=== PATIENT | male | born 1990 | race Caucasian/White ===

== ENCOUNTER 2017-09-23 12:04 | Emergency (ER) | payer SELFPAY ==
[2017-09-23] MEDS ORDERED: Lidocaine 1% (PF) 30 ML VIAL ONE (12:30)
[2017-09-23] MEDS ORDERED: Adacel (T-DAP) 0.5 ML VIAL ONE (13:10)
[2017-09-23] MEDS ORDERED: ISOVUE-370 76%-LOCM 1 ML ONE (13:14)
[2017-09-23] MEDS ORDERED: Clindamycin/D5W 600 mg/50 ml Premix Bag ONE (13:21)
--- NOTE | 2017-09-23 13:28 | CT ---
CT FACE WITH CONTRAST: Date: 09/23/17 HISTORY: Evaluate left eyebrow abscess. COMPARISON: None. FINDINGS: There is left periorbital preseptal cellulitis, as well as an abscess, measuring 1.1 x 1.1 x 1.2 cm. This extends to the skin surface. The orbits themselves are normal. The intraconal and extraconal fat is normal. Both orbital nerves ar e normal. No fracture. No malalignment. No osseous erosion. The mastoids are clear. Paranasal sinuses are also clear. Normal appearance of the upper cervical spine. IMPRESSION: Left periorbital preseptal cellulitis with a subcutaneous soft tissue abscess measuring 1.1 x 1.1 x 1 .2 cm at the level of the zygoma. No underlying osseous abnormality. Orbits are normal. POS: [facility]
== END 2017-09-23 14:24 | disposition home or self-care (01) ==
LOC: ERS 12:04
DX: L03.213 Periorbital cellulitis (principal); L03.211 Cellulitis of face; F31.9 Bipolar disorder, unspecified
CPT/HCPCS: 10060; 70487; 87070; 87205; 90471; 90715; 96365; J2001; J3490